=== PATIENT | female | born 1975 | race Two or more races ===

== ENCOUNTER 2018-09-26 15:40 | Emergency (ER) | payer MEDICAID ==
[~2018-09-26] VITALS: Ht 157.5 cm; Wt 74.5 kg
[2018-09-26] MEDS ORDERED: iron PO (16:11)
[2018-09-26] MEDS ORDERED: vitamin c PO (16:11)
[2018-09-26 16:35] LABS: BASOPHILS # (AUTO) 0.05 x10^3/uL (0-0.1); BASOPHILS % (AUTO) 1 % (0-1); EOSINOPHILS # (AUTO) 0.29 x10^3/uL (0-0.4); EOSINOPHILS % (AUTO) 3 % (1-7); LYMPHOCYTES % (AUTO) 22 % (22-44); MD NO; MEAN CORPUSCULAR HEMOGLOBIN 24.4 pg (27.0-34.8); MEAN CORPUSCULAR HGB CONC 32.8 g/dL (32.4-35.8); MEAN CORPUSCULAR VOLUME 74.4 fL (80-100); MONOCYTES # (AUTO) 0.69 x10^3/uL (0.2-0.8); MONOCYTES % (AUTO) 6 % (2-9); NEUTROPHILS # (AUTO) 7.55 x10^3/uL (1.8-6.8); NEUTROPHILS % (AUTO) 69 % (42-75); PLATELET COUNT 304 x10^3/uL (130-400); RED BLOOD COUNT 4.62 x10^6/uL (3.82-5.3); RED CELL DISTRIBUTION WIDTH 19.9 % (9.6-15.2)
[2018-09-26 16:44] LABS: HCG UR SG 1.023 (1.003-1.030); MICROSCOPIC NOT IND
[2018-09-26 16:44] LABS: ALBUMIN 3.6 g/dL (3.4-5.0); ANION GAP 8 mmol/L (5-15); CALCIUM 9.1 mg/dL (8.5-10.1); CHLORIDE 108 mmol/L (98-107)
[2018-09-26 16:48] LABS: ALANINE AMINOTRANSFERASE 26 U/L (12-78); ALKALINE PHOSPHATASE 97 U/L (45-117); BILIRUBIN,TOTAL 0.2 mg/dL (0.2-1.0); CREATININE 0.72 mg/dL (0.55-1.02); TOTAL PROTEIN 7.8 g/dL (6.4-8.2)
[2018-09-26 17:11] LABS: CULTURE INDICATED? NO
[2018-09-26] MEDS ORDERED: IBUPROFEN 200 MG TABLET ONE (19:27)
[2018-09-26] MEDS ORDERED: IBUPROFEN 200 MG TABLET PO ONE (19:30)
[2018-09-26 19:51] VITALS: BP 119/72
== END 2018-09-26 19:58 | disposition home or self-care (01) ==
LOC: ED 18:40
DX: R10.32 Left lower quadrant pain (principal); R10.12 Left upper quadrant pain
CPT/HCPCS: 36415; 76700; 76830; 80053; 81003; 81025; 83690; 85025; 99284